=== PATIENT | female | born 1990 | race Caucasian/White ===

== ENCOUNTER 2024-04-20 04:37 | Inpatient (IN) | payer BC, OTHER ==
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
[2024-04-20 08:59] LABS: Amphetamine Screen,Urine Not Detected (NotDetected); Barbiturate Screen,Urine Not Detected (NotDetected); Benzodiazepines Screen,Urine Detected (NotDetected); Cocaine Screen,Urine Not Detected (NotDetected); Methadone Screen, Urine Not Detected (NotDetected); Opiate Screen,Urine Not Detected (NotDetected); Oxycodone Screen, Urine Not Detected (NotDetected); Phencyclidine Screen,Urine Not Detected (NotDetected); Tricyclic Antidepressant,Urine Not Detected (NotDetected); Urn Cannabinoid Scrn Detected (NotDetected)
[2024-04-20] MEDS: IBUPROFEN 600 MG TAB PO STA (12:50)
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
[2024-04-20] MEDS ORDERED: MAGNESIUM HYDROXIDE 2,400 MG/30 ML CUP PO PRN (14:59)
[2024-04-20] MEDS ORDERED: LORazepam 1 MG TAB PO PRN ×2 (14:59)
[2024-04-20] MEDS ORDERED: MAG HYDROX/AL HYDROX/SIMETH 355 ML BOTTLE PO PRN (14:59)
[2024-04-20] MEDS ORDERED: LORazepam 2 MG/ML INJ IM PRN (14:59)
[2024-04-20] MEDS ORDERED: ACETAMINOPHEN TAB 325 MG TAB PO PRN (14:59)
[2024-04-20] MEDS ORDERED: haloperidoL 5 MG TAB PO PRN (14:59)
[2024-04-20] MEDS ORDERED: IBUPROFEN 600 MG TAB PO PRN (14:59)
[2024-04-20] MEDS ORDERED: HALOPERIDOL LACTATE 5 MG/ML 1 ML VIAL IM PRN (14:59)
[2024-04-20 15:15] LABS: Appearance,Urine Clear (Clear); Bacteria,Urine Rare /hpf; Bilirubin,Urine Negative (Negative); Blood,Urine Small (Negative); Color,Urine Light Yellow; Glucose,Urine (UA) Negative (Negative); Ketones,Urine 1+ (Negative); Leukocyte Esterase,Urine Negative (Negative); Mucus,Urine Occasional /hpf; Nitrite,Urine Negative (Negative); PH, Urine 5.5 (5.0-8.0); Protein,Urine Negative (Negative); RBC,Urine 7 /hpf (0-5); Specific Gravity,Urine 1.019 (1.001-1.035); Squamous Epithelial Cell,Urine 2 /hpf (0-4); Urobilinogen,Urine <2.0 mg/dL (<2.0); WBC,Urine 1 /hpf (0-5)
[2024-04-20] MEDS: LORazepam 1 MG TAB PO PRN (23:28)
[2024-04-21] MEDS: NICOTINE 14MG/24HR PATCH TRANSDERM SCH (08:45)
[2024-04-21] MEDS: buPROPion XL 150 MG TAB.ER.24H PO SCH (08:45)
[2024-04-21] MEDS: THIAMINE 100 MG TAB PO SCH (08:45)
[2024-04-21] MEDS: FOLIC ACID 1 MG TAB PO SCH (08:45)
[2024-04-21] MEDS: FLUoxetine HCL 20 MG CAP PO SCH (08:45)
[2024-04-21] MEDS: lamoTRIgine 100 MG TAB PO SCH (08:45)
[2024-04-21] MEDS: MULTIVITAMINS, THERA 1 EACH TAB PO SCH (08:45)
[2024-04-21 09:01] LABS: Basophils % (A) 0 %; Eosinophils % (A) 1 %; HCT 42.3 % (34.0-46.0); HGB 14.1 gm/dL (11.4-16.0); Lymphocytes # (A) 1.2 k/uL (1.0-4.8); Lymphocytes % (A) 12 %; MCH 30.1 pg (25.0-35.0); MCHC 33.4 g/dL (31.0-37.0); MCV 90.2 fL (80.0-100.0); Mean Platelet Volume 8.1; Monocytes # (A) 0.3 k/uL (0-1.0); Monocytes % (A) 3 %; Neutrophils # (A) 7.8 k/uL (1.3-7.7); Neutrophils % (A) 82 %; Platelet Count 356 k/uL (150-450); RBC 4.69 m/uL (3.80-5.40); WBC 9.5 k/uL (3.8-10.6)
[2024-04-21 09:11] LABS: ALT 17 U/L (4-34); AST 25 U/L (14-36); African American GFR (CKD) >90 (>60 ml/min/1.73 sqM); Albumin 4.8 g/dL (3.5-5.0); Alkaline Phosphatase 107 U/L (38-126); Anion Gap 12 mmol/L; Blood Urea Nitrogen 8 mg/dL (7-17); Calcium 9.7 mg/dL (8.4-10.2); Carbon Dioxide 21 mmol/L (22-30); Chloride 103 mmol/L (98-107); Glucose 136 mg/dL (74-99); Non-African American GFR(CKD) >90 (>60 ml/min/1.73 sqM); Potassium 4.3 mmol/L (3.5-5.1); Sodium 136 mmol/L (137-145); Total Bilirubin 0.5 mg/dL (0.2-1.3); Total Protein 7.6 g/dL (6.3-8.2)
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
[2024-04-21] MEDS: lamoTRIgine 25 MG TAB PO ONE (12:45)
[2024-04-21 15:59] LABS: Chol/HDL Ratio 4.31 Ratio
--- NOTE | 2024-04-21 22:23 | P.MDCNMH ---
<Gumaro Montejo - Last Filed: 04/21/24 22:47> History of Present Illness H&P Date: 04/21/24 History of present illness; 33-year-old female presented to the hospital for homicidal thoughts. Takes no medications at home. Admits to smoking marijuana and alcohol use. Denies any other recreational drug use. Has no current medical complaints. REVIEW OF SYSTEMS: All systems reviewed, pertinent positives and negatives noted in HPI. All other symptoms are negative. PHYSICAL EXAMINATION: Vitals reviewed GENERAL: No acute distress. Well developed, well nourished. HEENT: No scleral icterus. Normocephalic, atraumatic. CARDIOVASCULAR: S1 and S2 present. No murmurs, rubs, or gallops. PULMONARY: Chest is clear to auscultation, no wheezing, rhonchi, or crackles. MUSCULOSKELETAL: No apparent joint swelling and deformities. EXTREMITIES: No apparent cyanosis, clubbing, or pedal edema. NEUROLOGICAL: The patient is alert and oriented x3, Gross neurological examination did not reveal any focal deficits. 5/5 strength bilateral UE and LE. CN2-12 intact without any gross abnormality. SKIN: No rash noted. Assessment and plan 33-year-old female presented to the hospital for homicidal thoughts. Internal medicine accepted this consult for medical management. Chronic Medical Conditions #Hyperlipidemia -Not currently on any medications nad no history of -Labs done showed: Triglyceride 113, cholesterol 226, LDL 151, VLDL 22.60, HDL 52.4 -Follow up outpatient #Possible alcohol use disorder -Continue with [facility] protocol # Depression/anxiety, conduct disorder, ODD/ADHD, bipolar/PTSD/BPD -Psychiatric medications as per the primary psychiatry team Code status: Full code Patient is stable from medical stand point Dictation was produced using [employer] dictation software. Please excuse any gramm atical, word or spelling errors. Past Medical History Past Medical History: No Reported History History of Any Multi-Drug Resistant Organisms: None Reported Past Surgical History: Section Past Anesthesia/Blood Transfusion Reactions: No Reported Reaction Past Psychological History: Anxiety, Depression Smoking Status: Never smoker Past Alcohol Use History: None Reported Past Drug Use History: None Reported Medications and Allergies Home Medications Medication Instructions Recorded Confirmed Type FLUoxetine HCL [PROzac] 40 mg PO DAILY 04/20/24 04/20/24 History buPROPion XL [Wellbutrin XL] 150 mg PO DAILY 04/20/24 04/20/24 History lamoTRIgine [LaMICtal] 150 mg PO DAILY 04/20/24 04/20/24 History Allergies Allergy/AdvReac Type Severity Reaction Status Date / Time No Known Allergies Allergy Verified 04/20/24 09:53 Physical Exam Vitals: Vital Signs Temp Pulse Resp BP Pulse Ox 04/21/24 06:26 98.1 F 106 H 16 145/84 98 Results CBC & Chem 7: 04/21/24 08:32 04/21/24 08:32 Labs: Abnormal Lab Results - Last 24 Hours (Table) 04/21/24 04/21/24 Range/Units 08:32 08:32 Neutrophils # 7.8 H (1.3-7.7) k/uL Sodium 136 L (137-145) mmol/L Carbon Dioxide 21 L (22-30) mmol/L Glucose 136 H (74-99) mg/dL Cholesterol 226.00 H (0.00-200.00) mg/dL LDL Cholesterol, Calc 151.0 H (0.0-131.0) mg/dL <Patricia Shaw - Last Filed: 04/21/24 23:53> History of Present Illness hyperlipidemia , recommending life style modification and weight loss. follow up LIpid panel in 3-6 months Physical Exam Vitals: Vital Signs Temp Pulse Resp BP Pulse Ox 04/21/24 06:26 98.1 F 106 H 16 145/84 98 Cranial Nerve Examination - Cranial Nerves Cranial Nerve II- Optic: Intact Cranial Nerve III- Oculomotor: Intact Cranial Nerve IV- Trochlear: Intact Cranial Nerve V- Trigeminal: Intact Cranial Nerve - Abducens: Intact Cranial Nerve VII- Facial: Intact Cranial Nerve VIII- Auditory: Intact Cranial Nerve IX- Glossopharyngeal: Intact Cranial Nerve X- Vagus: Intact Cranial Nerve XI- Accessory: Intact Cranial Nerve XII- Hypoglossal: Intact Results CBC & Chem 7: 04/21/24 08:32 04/21/24 08:32 Labs: Abnormal Lab Results - Last 24 Hours (Table) 04/21/24 04/21/24 Range/Units 08:32 08:32 Neutrophils # 7.8 H (1.3-7.7) k/uL Sodium 136 L (137-145) mmol/L Carbon Dioxide 21 L (22-30) mmol/L Glucose 136 H (74-99) mg/dL Cholesterol 226.00 H (0.00-200.00) mg/dL LDL Cholesterol, Calc 151.0 H (0.0-131.0) mg/dL Assessment and Plan Assessment: I have seen and evaluated the patient today. I Discussed the case with the resident and agree with the resident's findings I edited the assessment and plan as necessary as documented in the resident's note.
[2024-04-22 06:49] VITALS: TEMP 98.3
[2024-04-22] MEDS: lamoTRIgine 100 MG TAB PO SCH (08:23)
[2024-04-22] MEDS: FLUoxetine HCL 20 MG CAP PO SCH (08:24)
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
[2024-04-23] MEDS: BENZOCAINE/MENTHOL LOZENG 1 EACH LOZENGE MUCOUS MEM PRN (02:28)
[2024-04-23 06:36] VITALS: BP 116/84; PULSE 83; RESP 18
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
== END 2024-04-23 12:40 | disposition home or self-care (01) | DRG 885 ==
LOC: EC 04:37 → 3MHU 14:58
PROVIDERS: ADMIT Psychiatry & Neurology Psychiatry; ATTEND Psychiatry & Neurology Psychiatry
DX: F31.9 Bipolar disorder, unspecified (principal); R45.851 Suicidal ideations; E78.5 Hyperlipidemia, unspecified; F12.10 Cannabis abuse, uncomplicated; F10.20 Alcohol dependence, uncomplicated; F22 Delusional disorders; F41.1 Generalized anxiety disorder; F43.10 Post-traumatic stress disorder, unspecified; F60.89 Other specific personality disorders; S60.229A Contusion of unspecified hand, initial encounter; F90.9 Attention-deficit hyperactivity disorder, unspecified type; G47.10 Hypersomnia, unspecified; R45.850 Homicidal ideations; Z56.0 Unemployment, unspecified; Z79.899 Other long term (current) drug therapy; Z81.8 Family history of other mental and behavioral disorders; Z91.51 Personal history of suicidal behavior; X58.XXXA Exposure to other specified factors, initial encounter
CPT/HCPCS: 80053; 80061; 80306; 81001; 81025; 82075; 83036; 84443; 85025; 87636; 99285

== ENCOUNTER 2024-06-13 23:34 | Inpatient (IN) | payer BC, OTHER ==
--- NOTE | 2024-06-14 00:10 | ED ---
General Adult HPI - General Chief complaint: Psychiatric Symptoms Stated complaint: Petition Time Seen by Provider: 06/13/24 23:43 Source: police Mode of arrival: ambulatory Limitations: no limitations - History of Present Illness Initial comments: Dictation was produced using [employer] dictation software. please excuse any grammatical, word or spelling errors. Chief Complaint: 33-year-old female found wandering on the road History of Present Illness: Patient 33-year-old female presents to the emergency department via enforcement. She was found wandering the roads and a T-shirt increasing temperatures outside. Animal Nursery Worker's at the bedside states that patient was not cooperative or speaking. They do report that patient has history of mental disorder Unable to obtain ROS secondary to patient being uncooperative - Related Data Previous Rx's Medication Instructions Recorded FLUoxetine HCL [PROzac] 60 mg PO DAILY 30 Days #90 cap 04/23/24 Folic Acid 1 mg PO DAILY tab 04/23/24 Multivitamins, Thera [Multivitamin 1 each PO DAILY tab 04/23/24 (formulary)] Thiamine [Vitamin B-1] 100 mg PO DAILY tab 04/23/24 buPROPion XL [Wellbutrin XL] 150 mg PO DAILY 30 Days #30 tab 04/23/24 lamoTRIgine [LaMICtal] 200 mg PO DAILY 30 Days #60 tab 04/23/24 Allergies Allergy/AdvReac Type Severity Reaction Status Date / Time No Known Allergies Allergy Verified 06/14/24 00:03 Review of Systems ROS Statement: Those systems with pertinent positive or pertinent negative responses have been documented in the HPI. ROS Other: All systems not noted in ROS Statement are negative. Past Medical History Past Medical History: No Reported History History of Any Multi-Drug Resistant Organisms: None Reported Past Surgical History: No Surgical Hx Reported Past Anesthesia/Blood Transfusion Reactions: No Reported Reaction Past Psychological History: Anxiety, Depression Smoking Status: Current every day smoker Past Alcohol Use History: Occasional Past Drug Use History: None Reported General Exam - General Exam Comments Initial Comments: General: Well-appearing, nontoxic, no acute distress. Head: Normocephalic, atraumatic Eyes: PERRLA, EOMI ENT: Airway patent Chest: Nonlabored breathing Skin: No visual rash, normal skin tone Neuro: Alert and oriented 3 Musculoskeletal: No gross abnormalities Limitations: no limitations Course Vital Signs 06/13/24 06/13/24 23:38 23:54 Temperature 98.3 F 98 F Pulse Rate 80 79 Respiratory 18 18 Rate Blood Pressure 132/93 151/106 O2 Sat by Pulse 100 97 Oximetry Medical Decision Making - Medical Decision Making Was pt. sent in by a medical professional or institution (, PA, ELECTRONIC RESOURCES LIBRARIAN, urgent care, hospital, or senior living...) When possible be specific @ -No Did you speak to anyone other than the patient for history (EMS, parent, family, police, friend...)? What history was obtained from this source @ -Katherine as described above Did you review nursing and triage notes (agree or disagree)? Why? @ -I reviewed and agree with nursing and triage notes Were old charts reviewed (outside hosp., previous admission, EMS record, old EKG, old radiological studies, urgent care reports/EKG's, senior living records)? Report findings @ -No old charts were reviewed Differential Diagnosis (chest pain, altered mental status, abdominal pain women, abdominal pain men, vaginal bleeding, musculoskeletal, weakness, fever, dyspnea, syncope, headache, dizziness, GI bleed, back pain, seizure, CVA, palpatations, mental health)? @ -Differential Mental Health: Depression, anxiety, bipolar, psychosis, schizophrenia, borderline personality, situational depression, adjustment disorder, behavioral disorder, brain tumor, malingering, substance abuse, encephalopathy, medication reaction, dementia, hypothyroidism, degenerative neurologic disorder, lupus.... This is not meant to be all-inclusive list EKG interpreted by me (3pts min.). @ -None done X-rays interpreted by me (1pt min.). @ -None done CT interpreted by me (1pt min.). @ -None done U/S interpreted by me (1pt. min.). @ -None done What testing was considered but not performed or refused? (CT, X-rays, U/S, labs)? Why? @ -None What meds were considered but not given or refused? Why? @ -None Was smoking cessation discussed for >3mins.? @ -No Were there social determinants of health that impacted care today? How? (Homelessness, low income, unemployed, alcoholism, drug addiction, transportation, low edu. Level, literacy, decrease access to med. care, shelter, rehab)? @ -No Was there de-escalation of care discussed even if they declined (Discuss DNR or withdrawal of care, Hospice)? DNR status @ -No What co-morbidities impacted this encounter? (DM, HTN, Smoking, COPD, CAD, Cancer, CVA, ARF, Chemo, Hep., AIDS, mental health diagnosis, sleep apnea, morbid obesity)? @ -None Was patient admitted / discharged? Hospital course, mention meds given and route, prescriptions, significant lab abnormalities, going to OR and other pertinent info. @ -33-year-old female presents emergency department for psychiatric evaluation. She was found wandering outside and inclement weather just a T-shirt. Vital signs stable. Patient well-appearing. Patient unwilling to speak to myself or other staff. She is in no acute distress and is aware and alert. Patient medically cleared for EPS evaluation Did you discuss the management of the patient with other professionals (professionals i.e. , PA, ELECTRONIC RESOURCES LIBRARIAN, lab, RT, psych nurse, renal social worker, cistern room working supervisor, teacher, supervisory cbp officer, employment evaluator/case manager)? Give summary @ -Patient arrived by EPS recommends inpatient psychiatric admission. Clinical certification completed and placed in patient's chart Was critical care preformed (if so, how long)? @ -No Undiagnosed new problem with uncertain prognosis? @ -No Drug Therapy requiring intensive monitoring for toxicity (Heparin, Nitro, Insulin, Cardizem)? @ -No Were any procedures done? @ -No Diagnosis/symptom? Acute, or Chronic, or Acute on Chronic? Uncomplicated (without systemic symptoms) or Complicated (systemic symptoms)? @ -Acute psychosis Side effects of treatment? @ -No Exacerbation, Progression, or Severe Exacerbation? @ -No Poses a threat to life or bodily function? How? (Chest pain, [place], [place], pneumonia, PE, COPD, DKA, ARF, appy, cholecystitis, CVA, Diverticulitis, Homicidal, Suicidal, threat to staff... and all critical care pts) @ -yes Disposition Clinical Impression: Acute psychosis Disposition: ADMITTED IP TO THIS [facility] Condition: Fair Referrals: None,Stated [Primary Care Provider] - 1-2 days Time of Disposition: 00:46
[2024-06-14 02:10] LABS: Appearance,Urine Clear (Clear); Basophils # (A) 0.1 k/uL (0-0.2); Basophils % (A) 1 %; Bilirubin,Urine Negative (Negative); Blood,Urine Negative (Negative); Color,Urine Colorless; Eosinophils # (A) 0.2 k/uL (0-0.7); Eosinophils % (A) 1 %; Glucose,Urine (UA) Negative (Negative); HCT 39.1 % (34.0-46.0); HGB 12.8 gm/dL (11.4-16.0); Ketones,Urine Negative (Negative); Leukocyte Esterase,Urine Negative (Negative); Lymphocytes # (A) 1.5 k/uL (1.0-4.8); Lymphocytes % (A) 11 %; MCH 29.2 pg (25.0-35.0); MCHC 32.8 g/dL (31.0-37.0); MCV 88.9 fL (80.0-100.0); Mean Platelet Volume 7.1; Monocytes # (A) 0.6 k/uL (0-1.0); Monocytes % (A) 4 %; Neutrophils # (A) 11.4 k/uL (1.3-7.7); Neutrophils % (A) 82 %; Nitrite,Urine Negative (Negative); Platelet Count 418 k/uL (150-450); Protein,Urine Negative (Negative); RDW 12.8 % (11.5-15.5); Specific Gravity,Urine 1.009 (1.001-1.035); Urobilinogen,Urine <2.0 mg/dL (<2.0)
[2024-06-14 02:24] LABS: ALT 13 U/L (4-34); AST 19 U/L (14-36); African American GFR (CKD) >90 (>60 ml/min/1.73 sqM); Albumin 4.3 g/dL (3.5-5.0); Alkaline Phosphatase 139 U/L (38-126); Anion Gap 12 mmol/L; Blood Urea Nitrogen 7 mg/dL (7-17); Calcium 9.7 mg/dL (8.4-10.2); Carbon Dioxide 23 mmol/L (22-30); Chloride 102 mmol/L (98-107); Glucose 113 mg/dL (74-99); Non-African American GFR(CKD) >90 (>60 ml/min/1.73 sqM); Potassium 4.1 mmol/L (3.5-5.1); Sodium 137 mmol/L (137-145); Total Bilirubin 0.3 mg/dL (0.2-1.3); Total Protein 6.8 g/dL (6.3-8.2)
[2024-06-14 02:35] LABS: Amphetamine Screen,Urine Not Detected (NotDetected); Barbiturate Screen,Urine Not Detected (NotDetected); Benzodiazepines Screen,Urine Not Detected (NotDetected); Cocaine Screen,Urine Not Detected (NotDetected); Methadone Screen, Urine Not Detected (NotDetected); Opiate Screen,Urine Not Detected (NotDetected); Oxycodone Screen, Urine Not Detected (NotDetected); Phencyclidine Screen,Urine Not Detected (NotDetected); Tricyclic Antidepressant,Urine Not Detected (NotDetected); Urn Cannabinoid Scrn Detected (NotDetected)
[2024-06-14 10:38] VITALS: RESP 16
[2024-06-14] MEDS ORDERED: haloperidoL 5 MG TAB PO PRN (17:40)
[2024-06-14] MEDS ORDERED: MAG HYDROX/AL HYDROX/SIMETH 355 ML BOTTLE PO PRN (17:40)
[2024-06-14] MEDS ORDERED: ACETAMINOPHEN TAB 325 MG TAB PO PRN (17:40)
[2024-06-14] MEDS ORDERED: IBUPROFEN 600 MG TAB PO PRN (17:40)
[2024-06-14] MEDS ORDERED: LORazepam 1 MG TAB PO PRN ×3 (17:40→19:37)
[2024-06-14] MEDS ORDERED: MAGNESIUM HYDROXIDE 2,400 MG/30 ML CUP PO PRN (17:40)
[2024-06-15] MEDS ORDERED: BENZOCAINE/MENTHOL LOZENG 1 EACH LOZENGE MUCOUS MEM PRN (04:56)
[2024-06-15] MEDS: NICOTINE 14MG/24HR PATCH TRANSDERM SCH (09:09)
--- NOTE | 2024-06-15 13:29 | P.HP ---
Psychiatric H&P - . H&P Date: 06/15/24 History & Physical: Allergies Allergy/AdvReac Type Severity Reaction Status Date / Time No Known Allergies Allergy Verified 06/14/24 10:05 Vital Signs Temp 98.2 F 06/15/24 06:26 Pulse 106 H 06/15/24 09:10 Resp 16 06/15/24 06:26 BP 128/79 06/15/24 09:10 Pulse Ox 97 06/15/24 06:26 FiO2 Intake & Output 06/14/24 06/15/24 06/15/24 18:59 06:59 18:59 Weight 81.1 kg Laboratory Last Values WBC 14.0 k/uL (3.8-10.6) H 06/14/24 01:45 RBC 4.40 m/uL (3.80-5.40) 06/14/24 01:45 Hgb 12.8 gm/dL (11.4-16.0) 06/14/24 01:45 Hct 39.1 % (34.0-46.0) 06/14/24 01:45 MCV 88.9 fL (80.0-100.0) 06/14/24 01:45 MCH 29.2 pg (25.0-35.0) 06/14/24 01:45 MCHC 32.8 g/dL (31.0-37.0) 06/14/24 01:45 RDW 12.8 % (11.5-15.5) 06/14/24 01:45 Plt Count 418 k/uL (150-450) 06/14/24 01:45 MPV 7.1 06/14/24 01:45 Neutrophils % 82 % 06/14/24 01:45 Lymphocytes % 11 % 06/14/24 01:45 Monocytes % 4 % 06/14/24 01:45 Eosinophils % 1 % 06/14/24 01:45 Basophils % 1 % 06/14/24 01:45 Neutrophils # 11.4 k/uL (1.3-7.7) H 06/14/24 01:45 Lymphocytes # 1.5 k/uL (1.0-4.8) 06/14/24 01:45 Monocytes # 0.6 k/uL (0-1.0) 06/14/24 01:45 Eosinophils # 0.2 k/uL (0-0.7) 06/14/24 01:45 Basophils # 0.1 k/uL (0-0.2) 06/14/24 01:45 Sodium 137 mmol/L (137-145) 06/14/24 01:45 Potassium 4.1 mmol/L (3.5-5.1) 06/14/24 01:45 Chloride 102 mmol/L (98-107) 06/14/24 01:45 Carbon Dioxide 23 mmol/L (22-30) 06/14/24 01:45 Anion Gap 12 mmol/L 06/14/24 01:45 BUN 7 mg/dL (7-17) 06/14/24 01:45 Creatinine 0.56 mg/dL (0.52-1.04) 06/14/24 01:45 Est GFR (CKD-EPI)AfAm >90 (>60 ml/min/1.73 sqM) 06/14/24 01:45 Est GFR (CKD-EPI)NonAf >90 (>60 ml/min/1.73 sqM) 06/14/24 01:45 Glucose 113 mg/dL (74-99) H 06/14/24 01:[address] Glu mg/dL 108 mg/dL 06/15/24 07:33 Hemoglobin A1c 5.4 % (<=6.0) 06/15/24 07:33 Calcium 9.7 mg/dL (8.4-10.2) 06/14/24 01:45 Total Bilirubin 0.3 mg/dL (0.2-1.3) 06/14/24 01:45 AST 19 U/L (14-36) 06/14/24 01:45 ALT 13 U/L (4-34) 06/14/24 01:45 Alkaline Phosphatase 139 U/L (38-126) H 06/14/24 01:45 Total Protein 6.8 g/dL (6.3-8.2) 06/14/24 01:45 Albumin 4.3 g/dL (3.5-5.0) 06/14/24 01:45 TSH 1.330 mIU/L (0.465-4.680) 06/15/24 07:33 Urine Color Colorless 06/14/24 01:45 Urine Appearance Clear (Clear) 06/14/24 01:45 Urine pH 6.0 (5.0-8.0) 06/14/24 01:45 Ur Specific [place] 1.009 (1.001-1.035) 06/14/24 01:45 Urine Protein Negative (Negative) 06/14/24 01:45 Urine Glucose (UA) Negative (Negative) 06/14/24 01:45 Urine Ketones Negative (Negative) 06/14/24 01:45 Urine Blood Negative (Negative) 06/14/24 01:45 Urine Nitrite Negative (Negative) 06/14/24 01:45 Urine Bilirubin Negative (Negative) 06/14/24 01:45 Urine Urobilinogen <2.0 mg/dL (<2.0) 06/14/24 01:45 Ur Leukocyte Esterase Negative (Negative) 06/14/24 01:45 Urine HCG, Qual Not Detected (Not Detectd) 06/14/24 01:45 Urine Opiates Screen Not Detected (NotDetected) 06/14/24 01:45 Ur Oxycodone Screen Not Detected (NotDetected) 06/14/24 01:45 Urine Methadone Screen Not Detected (NotDetected) 06/14/24 01:45 Ur Barbiturates Screen Not Detected (NotDetected) 06/14/24 01:45 U Tricyclic Antidepress Not Detected (NotDetected) 06/14/24 01:45 Ur Phencyclidine Scrn Not Detected (NotDetected) 06/14/24 01:45 Ur Amphetamines Screen Not Detected (NotDetected) 06/14/24 01:45 U Methamphetamines Scrn Not Detected (NotDetected) 06/14/24 01:45 U Benzodiazepines Scrn Not Detected (NotDetected) 06/14/24 01:45 Urine Cocaine Screen Not Detected (NotDetected) 06/14/24 01:45 U Marijuana (THC) Screen Detected (NotDetected) H 06/14/24 01:45 SARS-CoV-2 (PCR) Not Detected (Not Detectd) 06/14/24 01:45 06/15/24 13:18 IDENTIFYING DATA: Patient is a 33-year-old female, unemployed and , living at home with father CHIEF COMPLAINT: Bizarre behavior HPI: Patient presented to the hospital with police enforcement after being found wandering outside with just a T-shirt on. EPS note revealed, "Patient was brought in by police who filled our a petition. Petition states "was walking down street at 10PM in 20*F in [facility]. Was also unable to speak with deputies and would only answer by nodding yes or no was walking directly in middle of road" "Has history of mental illness and father stated she needed to be in the hospital due to her mental illness". During assessment pt continued to remain mute but would answer questions by nodding head yes or no and by spelling words in the air with her finger. Zinc Etcher gained information from pt and from pt father. Patient prev IP here Apr 2024, pt nods that she has been taking her medications that she was discharged on but is unsure if she took her medications this morning. When offered to order her home meds for pt to take a dose, pt refused. Patient is going though a divorce and has been living with her father for the past few months. Patient has been diagnosed with bipolar most of her life. Patient has been going through a divorce and has partial custody of her 2 yr old son. Per pt father, pt was going to be able to see her son today but cancelled the visitation because she wasn't feeling good. Patient points to the ceiling when asked why she will not verbally talk, pt also refuses to write on a piece of paper but will spell out words by drawing them in the air which made the assessment slightly difficult. God is telling patient she cannot talk until 08/07/2024. Patient wants rehab, drinks anything she can get, last drink 06/12/24 she drank a bottle of wine. Patient denies seizures hx. Pt denies SI/HI,A/VH but appears to be religiously preoccupied and has delusional thought. Per pt and her father pt has hypersomnia sleeping 11-14 hrs, appears disheveled, decrease in appetite, poor impulse control, poor insight/ judgment." Patient seen and evaluated on the unit and was agreeable with speaking to press writer in office. Patient was disorganized, labile in affect. She states being found outside due to her being a goddess and that she has been communicating with God. She states she has been mute as God told her to spread the word via her behaviors not by speaking. Patient states being here due to her needing to go to rehab given alcohol and cannabis use however was unsure of the quantities of each. She states not being willing to take medications due to her wanting to get and display delusional thoughts regarding how she will become . Of note patient's screen was negative. She states she has been taking her medications including Lamictal, Prozac, Wellbutrin and states she has been seeing her outpatient psychiatrist for this. Patient was grandiose and religiously preoccupied throughout encounter telling press writer to read the Bible and that people who do not believe her will not be saved. Patient denies any suicidal or homicidal ideations intent or plan. At this time patient denies any auditory or visual hallucinations. Patient admits to using alcohol and cannabis. PAST PSYCHIATRIC HISTORY: Patient has a history of bipolar disorder. Patient reportedly has been taking Lamictal 200 mg daily, Wellbutrin XL 150 mg daily, Prozac 60 mg daily. She has tried Depakote, Zoloft, Trileptal, lithium, Risperdal in the past. Patient was most recently admitted to this facility 04/2024 and has had at least 10 inpatient hospitalizations. Follows with [facility]. Patient has had several suicide attempts in the past. PMH: as per ER note ALLERGIES: as per EMR SUBSTANCE USE HISTORY: As per HPI FAMILY PSYCHIATRIC/SUBSTANCE USE HISTORY: Patient states mom has depression SOCIAL HISTORY: Patient currently living with father and she has 1 child with h er ex- who has primary custody. She is unemployed. MENTAL STATUS EXAM: General Appearance: Patient appears to be stated age is alert, she requires frequent redirection. Patient appears to have poor hygiene and grooming. Behavior: Patient is seated without any agitated behavior. Speech: Patient's speech is talkative, loud volume at times Mood/Affect: Patient reports their mood is "okay", affect is congruent and labile. Suicidality/Homicidality: Patient denies having any homicidal ideation intent or plan. Denies any suicidal ideations intent or plan Perceptions: Patient denies any visual hallucinations and denies any auditory hallucinations Though content/process: There is evidence of methodist preoccupation, grandiose delusions with disorganized thoughts Memory and concentration: AOX3, grossly intact for the purposes of this session. Can spell "WORLD" backwards Judgment and insight: Poor STRENGTHS/WEAKNESSES: strength is that patient is resilient and has father support. Weakness is that patient has poor judgment and is impulsive INTELLECT: Average IMPRESSIONS: Bipolar 1 disorder, current episode manic Generalized anxiety disorder Cannabis use disorder Alcohol use disorder PLAN: -Patient is admitted under voluntary status to MHU for stabilization of psychiatric symptoms and safety. Patient has signed adult voluntary form and medication consent and is placed in patient's chart. Will have a low threshold for converting patient to involuntary if she refuses her medications tonight -Medications : Start Invega 3 mg at bedtime for psychosis, trazodone 50 mg at be dtime for sleep, restart Lamictal at 25 mg daily for mood stabilization -Ativan and Haldol PRN for agitation/aggression -Patient was counselled on substance abuse and desired to cut back on use -Patient was informed of the risks, benefits and side effects of the medication and patient verbally consented to taking the medications. Patient signed med consent form and was placed in chart. -Internal Medicine consult to perform medical evaluation and physical. -NRT -not needed as patient does not smoke -SW on board for discharge planning. Encourage patient to participate in groups to work on coping skills.
[2024-06-15 15:52] LABS: Chol/HDL Ratio 3.33 Ratio; LDL Cholesterol,Calculated 129.6 mg/dL (0.0-131.0)
[2024-06-15] MEDS: traZODone HCL 50 MG TAB PO SCH (21:50)
[2024-06-15] MEDS: PALIPERIDONE 3 MG TAB.ER.24 PO SCH (21:50)
--- NOTE | 2024-06-16 03:03 | P.MDCNMH ---
<Harriet Contreras - Last Filed: 06/16/24 03:13> History of Present Illness H&P Date: 06/16/24 Patient is a 33-year-old female with history of bipolar disorder and generalized anxiety disorder who presented to the ED brought in by law enforcement after she was found wandering around outside in just a T-shirt, was unwilling to speak to any staff and was admitted to the mental health unit for evaluation of acute psychosis. Sound physicians consulted for medical management. Patient endorses a cough. Patient denies any chest pain, shortness of breath, abdominal pain, nausea, vomiting, urinary or bowel complaints. WBCs 14, hemoglobin 12.8, creatinine 0.56, LDL 129.6, total cholesterol 220, urine toxicology positive for marijuana. Pertinent positives and negatives as discussed in HPI, a complete review of systems was performed and all other systems are negative. Patient seen and examined at bedside. Physical examination: Vital signs reviewed General: nontoxic, no distress, appears at stated age Derm: warm, dry, intact Head: atraumatic, normocephalic, symmetric Eyes: anicteric sclera Mouth: no lip lesion, mucus membranes moist Cardiovascular: S1 S2 reg, no murmur Lungs: CTA bilateral, no rhonchi, no rales, no accessory muscle use Abdominal: soft, non-tender to palpation, nondistended Extremities: No cyanosis, clubbing, or pedal edema. Neuro: Alert, Oriented to person, time and place, Gross neurological examination did not reveal any focal deficits. Cranial nerves II to XII grossly intact. Bilateral upper and lower extremity muscle strength intact and sensation intact. Psych: well appearing, appropriate affect Assessment/Plan: Bipolar 1 Generalized anxiety disorder Management per primary team psychiatry Cannabis use disorder Acute cough Robitussin 10 cc every 6 hours as needed CODE STATUS: Full code Patient has been medically optimized. Thank you for this consultation. Past Medical History Past Medical History: No Reported History History of Any Multi-Drug Resistant Organisms: None Reported Past Surgical History: No Surgical Hx Reported Past Anesthesia/Blood Transfusion Reactions: No Reported Reaction Past Psychological History: Anxiety, Bipolar, Depression Smoking Status: Current every day smoker, Vaper Past Alcohol Use History: Abuse, Daily, Heavy Past Drug Use History: Marijuana - Past Family History Father History Unknown: Yes Medications and Allergies Home Medications Medication Instructions Recorded Confirmed Type No Known Home Medications 06/14/24 06/14/24 History Allergies Allergy/AdvReac Type Severity Reaction Status Date / Time No Known Allergies Allergy Verified 06/14/24 10:05 Physical Exam Vitals: Vital Signs Temp Pulse Resp BP Pulse Ox 06/15/24 09:10 106 H 128/79 06/15/24 06:26 98.2 F 81 16 130/89 97 Results CBC & Chem 7: 06/14/24 01:45 06/14/24 01:45 Labs: Abnormal Lab Results - Last 24 Hours (Table) 06/15/24 Range/Units 07:33 Cholesterol 220.00 H (0.00-200.00) mg/dL HDL Cholesterol 66.00 H (40.00-60.00) mg/dL <Patricia Shaw M - Last Filed: 06/16/24 05:22> Physical Exam Vitals: Vital Signs Temp Pulse Resp BP Pulse Ox 06/15/24 09:10 106 H 128/79 06/15/24 06:26 98.2 F 81 16 130/89 97 Cranial Nerve Examination - Cranial Nerves Cranial Nerve II- Optic: Intact Cranial Nerve III- Oculomotor: Intact Cranial Nerve IV- Trochlear: Intact Cranial Nerve V- Trigeminal: Intact Cranial Nerve - Abducens: Intact Cranial Nerve VII- Facial: Intact Cranial Nerve VIII- Auditory: Intact Cranial Nerve IX- Glossopharyngeal: Intact Cranial Nerve X- Vagus: Intact Cranial Nerve XI- Accessory: Intact Cranial Nerve XII- Hypoglossal: Intact Results CBC & Chem 7: 06/14/24 01:45 06/14/24 01:45 Labs: Abnormal Lab Results - Last 24 Hours (Table) 06/15/24 Range/Units 07:33 Cholesterol 220.00 H (0.00-200.00) mg/dL HDL Cholesterol 66.00 H (40.00-60.00) mg/dL
[2024-06-16] MEDS: lamoTRIgine 25 MG TAB PO SCH (09:35)
[2024-06-16] MEDS ORDERED: guaiFENesin SYRUP 100MG/5ML 200 MG/10 ML CUP PO PRN (10:43)
[2024-06-16] MEDS: guaiFENesin-DM 100-10MG/5ML 10 ML CUP PO PRN (11:06)
--- NOTE | 2024-06-16 11:23 | P.PN ---
Progress Note - Text Progress Note Date: 06/16/24 Interval History: Patient was seen laying in bed and was directable and agreeable to speak with bond writer in the room. Patient refused all of her psychotropic medications, displaying poor insight and continues to express delusional thoughts. She states she cannot take medications as she will become soon and that she is waiting for her soulmate. Patient expresses how not factual this sounds however she was adamant that she will become and states that God was telling her this. She states not tending to her ADLs including brushing her teeth, combing her hair or showering and states that this is due to her feeling depressed however continue to decline medications to help with this. She states sleeping okay despite staff reporting 2 hours overnight. Patient was later seen walking the hallway stating "the end is near", expansive and affect. Mental Status Exam: General Appearance: Patient appears to be stated age is alert, directable, and cooperative. Patient hygiene and grooming are poor Behavior: Patient is calmly laying without any agitated behavior. Speech: Patient's speech is fluent and nonpressured, low volume and raspy tone. Mood/Affect: Mood is "okay", affect is congruent and expansive. Suicidality/Homicidality: Patient denies having any suicidal or homicidal ideation intent or plan. Perceptions: Patient denies any visual hallucinations however she reports auditory hallucinations described as hearing God speak to her Though content/process: There is evidence of both grandiose delusions and rastafarian preoccupation, disorganized thoughts Memory and concentration: AOX3, grossly intact for the purposes of this session Judgment and insight: poor Assessment Bipolar 1 disorder, current episode manic Generalized anxiety disorder Cannabis use disorder Alcohol use disorder Plan: -Patient continues to meet criteria for inpatient psychiatric admission for symptom stabilization and safety. Patient has not signed adult voluntary form and medication consent and was placed in patient's chart. Given patient's medication nonadherence, she will be converted involuntary. Petition completed today by RN with 2 CERT's to be completed as well. -Medications: Continue to offer Invega 3 mg at bedtime for psychosis, trazodone 50 mg at bedtime for sleep, Lamictal 25 mg daily for mood stabilization (note patient has been refusing these medications) -When necessary Ativan and Haldol for agitation/aggression. -Labs: Reviewed -NRT -not needed this patient does not smoke -SW on board for discharge planning. Encouraged the patient to participate in milieu. Currently awaiting deferral with curtain fitter and court date.
[2024-06-17] MEDS: LORazepam 2 MG/ML INJ IM PRN (09:34)
[2024-06-17] MEDS: HALOPERIDOL LACTATE 5 MG/ML 1 ML VIAL IM PRN (09:34)
--- NOTE | 2024-06-17 11:20 | P.PN ---
Progress Note - Text Progress Note Date: 06/17/24 Interval History: Patient was seen agitated in the halls, naked and refusing to put clothes on. Orthotic Technician attempted to talk to patient regarding what was going on however patient was exhibiting labile and bizarre behavior stating staff was infringing on her rights and that she was peacefully protesting. Patient was not redirectable and required as needed Ativan and Haldol which were effective. Of note patient has been refusing her psychotropic medications and was converted to involuntary yes terday given her refusal for treatment. Mental Status Exam: General Appearance: Patient appears to be stated age is alert and uncooperative. Behavior: Patient seen naked, yelling and agitated Speech: Patient's speech is fluent and pressured speech Mood/Affect: Mood is upset, affect is congruent and labile. Suicidality/Homicidality: Patient denies having any suicidal or homicidal ideation intent or plan. Perceptions: Patient denies any visual hallucinations and denies any auditory hallucinations Though content/process: There is evidence of hinduism preoccupation, bizarre behaviors exhibited Memory and concentration: AOX3, grossly intact for the purposes of this session Judgment and insight: poor Assessment Bipolar 1 disorder, current episode manic Generalized anxiety disorder Cannabis use disorder Alcohol use disorder Plan: -Patient continues to meet criteria for inpatient psychiatric admission for symptom stabilization and safety. Patient has not signed adult voluntary form an d medication consent and was placed in patient's chart. -Medications: Continue to offer Invega 3 mg at bedtime for psychosis, trazodone 50 mg at bedtime for sleep, Lamictal 25 mg daily for mood stabilization (note patient has been refusing these medications) -When necessary Ativan and Haldol for agitation/aggression. -Labs: Reviewed -SW on board for discharge planning. Encouraged the patient to participate in milieu. Currently awaiting deferral with securities attorney and court date.
--- NOTE | 2024-06-18 11:38 | P.PN ---
Progress Note - Text Progress Note Date: 06/18/24 Interval History: Patient was seen in her room and was notably irritable with specification writer, requesting to speak with specification writer in the [place]iff[place] as her room was her personal space. Patient was upset with requiring IM as needed medications yesterday for her behaviors, displaying poor insight into her behaviors yesterday stating she was peacefully protesting. She states not appreciating specification writer putting her hands to her yesterday despite specification writer not touching patient at all. She was reminded of court next week and patient stated she will request a jury trial. She continues to be nonadherent with psychotropic medications. Mental Status Exam: General Appearance: Patient appears to be stated age is alert, with poor hygiene, not cooperative. Behavior: Patient notably irritable, agitated Speech: Patient's speech is fluent and pressured Mood/Affect: Mood is upset, affect is congruent and labile. Suicidality/Homicidality: Patient denies having any suicidal or homicidal ideation intent or plan. Perceptions: Patient denies any visual hallucinations and denies any auditory hallucinations Though content/process: There is evidence of disorganization, delusional thoughts expressed Memory and concentration: AOX3, grossly intact for the purposes of this session Judgment and insight: Poor Assessment Bipolar 1 disorder, current episode manic Generalized anxiety disorder Cannabis use disorder Alcohol use disorder Plan: -Patient continues to meet criteria for inpatient psychiatric admission for symptom stabilization and safety. Patient has not signed adult voluntary form and medication consent and was placed in patient's chart. -Medications: Continue to offer Invega 3 mg at bedtime for psychosis, trazodone 50 mg at bedtime for sleep, Lamictal 25 mg daily for mood stabilization (note patient has been refusing these medications) -When necessary Ativan and Haldol for agitation/aggression. -Labs: Reviewed -SW on board for discharge planning. Encouraged the patient to participate in milieu. Court scheduled for next Friday
--- NOTE | 2024-06-19 15:57 | P.PN ---
Progress Note - Text Progress Note Date: 06/19/24 Dictation was produced using [employer] dictation software. Please excuse any grammatical, word or spelling errors. Interval history: Patient was seen in the hallway and was directable and agreeable to speak with the caption writer in the office for psychiatric follow-up. The pt states that she is feeling good today, reported that her mood is "good," reported that depression and anxiety are at the low side she rated both at 1 per 10. He denied any current suicidal, self-harm or homicidal thoughts or behavior he denied any auditory or visual hallucination. However she seemed to be minimizing her symptoms and display disorganized and bizarre thought and behavior. She has not been compliant with her medication and has been refusing all of her psychotropic medication. When we discussed medication today she reported " I am planning to be so I can take medication at all. " Education was provided and patient reported she is not considering any psychotropic medication at this time. Per nursing report: patient appears more aggressive with other patients and staff. caption writer asked patient if she would like something to assist her in calming down such as an oral prn medication. patient refused. Patient refused her vital signs, states "not today", also refused all of her medications this morning. Mental status exam: General Appearance: Patient appears to be stated age is alert, with poor hygiene, not cooperative. Behavior: Patient notably irritable, agitated Speech: Patient's speech is fluent and pressured Mood/Affect: Mood is "good", affect is congruent and labile. Suicidality/Homicidality: Patient denies having any suicidal or homicidal ideation intent or plan. Perceptions: Patient denies any visual hallucinations and denies any auditory hallucinations Though content/process: There is evidence of disorganization, delusional thoughts expressed, illogical and nonsensical process Memory and concentration: AOX3, grossly intact for the purposes of this session Judgment and insight: Poor Assessment Bipolar 1 disorder, current episode manic Generalized anxiety disorder Cannabis use disorder Alcohol use disorder Assessment/Plan: Continue with current diagnosis. Patient continues to meet criteria for inpatient psychiatric admission for symptom stabilization and safe ty .Patient will be maintained on current psychotropic medication regimen. Monitor for medication compliance and for any psychotropic medication side effects. Patient has been refusing all of her psychotropic medication, she was encouraged to start taking her meds however she continued to refuse. Will continue to monitor ongoing response to treatment. Encouraged participation in milieu.
--- NOTE | 2024-06-20 12:56 | P.PN ---
Progress Note - Text Progress Note Date: 06/20/24 Dictation was produced using [employer] dictation software. Please excuse any grammatical, word or spelling errors. Interval history: Patient was seen in the hallway and was directable and agreeable to speak with the expert medical writer in the office for psychiatric follow-up. The pt states that she is feeling well, denied any depression, anxiety, suicidal or homicidal thoughts or behavior. He denied any auditory or visual hallucination. Patient has disorganized thoughts and behavior, she was irritated and argumentative when we talked about medication. She reported that she does not consider any psychotropic medication and elaborates that has the right to refuse any treatment. No insight into her current mental illness, reported the reason for her not taking medication is to be . We will continue to offer medication. Mental status exam: General Appearance: Patient appears to be stated age is alert, with poor hygiene, not cooperative. Behavior: Patient notably irritable, agitated Speech: Patient's speech is fluent and pressured Mood/Affect: Mood is "good", affect is congruent and labile. Suicidality/Homicidality: Patient denies having any suicidal or homicidal ideation intent or plan. Perceptions: Patient denies any visual hallucinations and denies any auditory hallucinations Though content/process: There is evidence of disorganization, delusional thoughts expressed, illogical and nonsensical process Memory and concentration: AOX3, grossly intact for the purposes of this session Judgment and insight: Poor Assessment Bipolar 1 disorder, current episode manic Generalized anxiety disorder Cannabis use disorder Alcohol use disorder Assessment/Plan: Continue with current diagnosis. Patient continues to meet criteria for inpatient psychiatric admission for symptom stabilization and safety. Patient will be maintained on current psychotropic medication regimen. Monitor for medication compliance and for any psychotropic medication side effects. Patient has been refusing all of her psychotropic medication, she was encouraged to start taking her meds however she continued to refuse. Will continue to monitor ongoing response to treatment. Encouraged participation in milieu.
--- NOTE | 2024-06-20 21:27 | P.MHFACE ---
Face to Face Restrain/Seclus - Evaluation Patient's Immediate Situation: Endangers staff safety, Violent behavior Patient's Reaction to the Intervention: Appropriate, Cooperative, Angry, Suspicious Patient's Medical & Behavioral Condition: Awake, Alert, Follows directions, Paranoid Need to Continue or Terminate Restraint or Seclusion: Continue Face to Face Eval of Restraint Date: 06/20/24 Face to Face Eval of Restraint Time: 09:00
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
[2024-06-21] MEDS: risperiDONE 1 MG TAB PO SCH (21:58)
--- NOTE | 2024-06-22 12:44 | P.PN ---
Progress Note - Text Progress Note Date: 06/22/24 Interval History: Patient was seen laying in bed and was directable and agreeable to speak with policy writer in the room. She states still being upset with policy writer however reports good sleep and appetite. Patient was told the restrictions to the [place] will be uplifted today however will have a low threshold if patient continues to exhibit bizarre behaviors. Patient requested jury trial thus court tomorrow has been adjourned. This process was discussed with patient as this could take several months and patient was encouraged to identify some of her goals while here to which she states are to detox her medications. Patient was encouraged to consider medications and she states she will think about it. At this time patient denies any suicidal or homicidal ideations, intent or plan. Patient denies any auditory, visual hallucinations. Patient has been nonadherent with psychotropic medications. Mental Status Exam: General Appearance: Patient appears to be stated age is somnolent but cooperative. Behavior: Patient is calmly laying without any agitated behavior. Speech: Patient's speech is fluent and brief Mood/Affect: Mood is "tired", affect is congruent and constricted. Suicidality/Homicidality: Patient denies having any suicidal or homicidal ideation intent or plan. Perceptions: Patient denies any visual hallucinations and denies any auditory hallucinations Though content/process: There is no overt evidence of delusional thoughts however patient was brief in conversation today Memory and concentration: AOX3, grossly intact for the purposes of this session Judgment and insight: poor Assessment Bipolar 1 disorder, current episode manic Generalized anxiety disorder Cannabis use disorder Alcohol use disorder Plan: -Patient continues to meet criteria for inpatient psychiatric admission for symptom stabilization and safety. Patient has not signed adult voluntary form and medication consent and was placed in patient's chart. -Medications: Continue to offer Risperdal 1 mg at bedtime for bipolar disorder, Lamictal 25 mg daily for mood stabilization, trazodone 50 mg at bedtime for insomnia. Patient has been refusing all psychotropic medications. -When necessary Ativan and Haldol for agitation/aggression. -Labs: Reviewed -SW on board for discharge planning. Encouraged the patient to participate in milieu. Court scheduled for tomorrow has been adjourned as patient requested jury trial
--- NOTE | 2024-06-23 11:56 | P.PN ---
Progress Note - Text Progress Note Date: 06/23/24 Interval History: Patient was seen wandering the hallways and was directable and agreeable to sp harper with scientific technical writer in the office. Patient appeared to be minimizing symptoms however delusional thoughts were expressed. She states feeling well today however is still not agreeable with medications due to her detoxing because she is and wanting her baby to be pure from any drugs. Patient's negative test was discussed with patient to which she states she has plans on being . Attempted to have a discussion with patient's regarding medications that are more ideal for however patient declined. She states speaking to people in the outside world. Patient began laughing when told jury trial can take several months. At this time patient denies any suicidal or homicidal ideations, intent or plan. Patient denies any auditory, visual hallucinations. She continues to be nonadherent with medications. Mental Status Exam: General Appearance: Patient appears to be stated age is alert, directable, and more cooperative. Behavior: Patient is calmly seated without any agitated behavior. Withdrawn, minimizing Speech: Patient's speech is fluent, brief and nonpressured. Mood/Affect: Mood is "all right", affect is congruent and constricted. Suicidality/Homicidality: Patient denies having any suicidal or homicidal ideation intent or plan. Perceptions: Patient denies any visual hallucinations and denies any auditory hallucinations Though content/process: There is evidence of nonbizarre delusional thoughts Memory and concentration: AOX3, grossly intact for the purposes of this session Judgment and insight: poor Assessment Bipolar 1 disorder, current episode manic Generalized anxiety disorder Cannabis use disorder Alcohol use disorder Plan: -Patient continues to meet criteria for inpatient psychiatric admission for symptom stabilization and safety. Patient has not signed adult voluntary form and medication consent and was placed in patient's chart. -Medications: Continue to offer Risperdal 1 mg at bedtime for bipolar disorder, Lamictal 25 mg daily for mood stabilization, trazodone 50 mg as needed at bedtime for insomnia. Patient has been refusing all psychotropic medications -When necessary Ativan and Haldol for agitation/aggression. -Labs: Reviewed -SW on board for discharge planning. Encouraged the patient to participate in milieu. Court adjourned as patient requested jury trial
[2024-06-23] MEDS: traZODone HCL 50 MG TAB PO PRN (21:31)
--- NOTE | 2024-06-24 11:40 | P.PN ---
Progress Note - Text Progress Note Date: 06/24/24 Interval History: Patient was seen in room and was directable and agreeable to speak with insurance writer in the room. Patient did take Risperdal and trazodone overnight and is reporting fatigue this morning. Patient states that God told her to take the medicine and she questions when she can be discharged. She reports sleep difficulties despite fatigue this morning. Discussed with patient the plan to ideally transition to VALLADARES to which patient was agreeable however she later came to insurance writer and requests Geodon instead and was agreeable with starting this medication after obtaining an EKG. Psychoeducation was provided on this medication as it is more weight neutral and FDA approved for bipolar disorder. Patient inquired about follow-up and was told she will follow-up with [facility] outpatient. At this time patient denies any suicidal or homicidal ideations, intent or plan. Patient denies any visual hallucinations and denies any paranoia or delusions. Patient has been compliant with meds. Mental Status Exam: General Appearance: Patient appears to be stated age is alert, directable, and cooperative. She has poor hygiene Behavior: Patient is calmly seated without any agitated behavior. Speech: Patient's speech is fluent and nonpressured. Mood/Affect: Mood is improving mildly, affect is congruent and reactive. Suicidality/Homicidality: Patient denies having any suicidal or homicidal ideation intent or plan. Perceptions: Patient denies any visual hallucinations however reports auditory hallucinations described as God speaking to her Though content/process: There is no evidence of any delusional thought content and thought process is linear and goal-directed. Memory and concentration: AOX3, grossly intact for the purposes of this session Judgment and insight: Improving mildly Assessment Bipolar 1 disorder, current episode manic Generalized anxiety disorder Cannabis use disorder Alcohol use disorder Plan: -Patient continues to meet criteria for inpatient psychiatric admission for symptom stabilization and safety. Patient has not signed adult voluntary form and medication consent and was placed in patient's chart. -Medications: change Risperdal to Geodon 40 mg twice daily for bipolar disorder and continue Lamictal 25 mg daily for mood stabilization, trazodone 50 mg as needed at bedtime for insomnia -When necessary Ativan and Haldol for agitation/aggression. -Labs: Reviewed, EKG ordered to be completed today -SW on board for discharge planning. Encouraged the patient to participate in milieu. Court adjourned as patient requested jury trial and did not sign deferral
[2024-06-24 12:40] VITALS: BMI 37.3
[2024-06-24] MEDS: ZIPRASIDONE 40 MG CAP PO SCH (18:04)
[2024-06-25] MEDS: ZIPRASIDONE 40 MG CAP PO SCH (09:56)
--- NOTE | 2024-06-25 12:31 | P.PN ---
Progress Note - Text Progress Note Date: 06/25/24 Interval History: Patient was seen wandering the hallways and was directable and agreeable to sp harper with science writer in the office. Patient was compliant with her psychotropic medications, taking trazodone as needed for sleep which she finds effective. Patient did exhibit some disorganized thoughts, stating she feels as though she is not controlling them. She does report ideas of reference. She was goal oriented today and states she will be able to see her son on Friday which she was happy about. More reactive and affect. As patient requested jury trial, this was discussed at length as patient will be discharged before this will happen. At this time patient denies any suicidal or homicidal ideations, intent or plan. Patient denies any auditory, visual hallucinations. Patient denies any side effects from the medications and has been compliant with meds. Mental Status Exam: General Appearance: Patient appears to be stated age is alert, directable, and cooperative. Behavior: Patient is calmly seated without any agitated behavior. Speech: Patient's speech is fluent and less pressured Mood/Affect: Mood is improving mildly, affect is congruent and reactive. Suicidality/Homicidality: Patient denies having any suicidal or homicidal ideation intent or plan. Perceptions: Patient denies any visual hallucinations and denies any auditory hallucinations Though content/process: There is evidence of ideas of reference, disorganized station however less than previous encounters Memory and concentration: AOX3, grossly intact for the purposes of this session Judgment and insight: Improving mildly Assessment Bipolar 1 disorder, current episode manic generalized anxiety disorder Cannabis use disorder Alcohol use disorder Plan: -Patient continues to meet criteria for inpatient psychiatric admission for symptom stabilization and safety. Patient has not signed adult voluntary form and medication consent and was placed in patient's chart. -Medications: Increase Geodon to 80 mg twice daily for bipolar disorder, continue Lamictal 25 mg daily for mood stabilization, trazodone 50 mg as needed at bedtime for insomnia -When necessary Ativan and Haldol for agitation/aggression. -Labs: Reviewed, EKG showed normal sinus rhythm with sinus arrhythmia, QTc 449 -SW on board for discharge planning. Encouraged the patient to participate in milieu. Patient requested jury trial thus court has been adjourned. Anticipate discharge back home with father on Friday with [facility] follow-up.
[2024-06-25] MEDS: ZIPRASIDONE 80 MG CAP PO SCH (17:38)
[2024-06-26] MEDS: ZIPRASIDONE 80 MG CAP PO SCH (08:22)
--- NOTE | 2024-06-26 08:36 | P.PN ---
Subjective Progress Note Date: 06/26/24 Principal diagnosis: bipolar 1 manic in partial remission Patient was seen wandering the hallways and was directable and agreeable to speak with telegraphic typewriter operator chief in the office. Patient was compliant with her psychotropic medications, taking trazodone as needed for sleep which she finds effective. she says that she never has any trouble remembering her medicinesher good candidate for the Lamictal she is on. Patientsays she feels more in control of her thoughts. She does report ideas of reference. She was goal oriented today and states she will be able to see her son on Friday which she was happy about. affect appropriate. As patient requested jury trial, this was discussed at length as patient will be discharged before this will happen. At this time patient denies any suicidal or homicidal ideations, intent or plan. Patient denies any auditory, visual hallucinations. P atient denies any side effects from the medications and has been compliant with meds. Mental Status Exam: General Appearance: Patient appears to be stated age is alert, directable, and cooperative. Behavior: Patient is calmly seated without any agitated behavior. Speech: Patient's speech is fluent and less pressured Mood/Affect: Mood is improving mildly, affect is congruent and reactive. Suicidality/Homicidality: Patient denies having any suicidal or homicidal ideation intent or plan. Perceptions: Patient denies any visual hallucinations and denies any auditory hallucinations Though content/process: There is evidence of ideas of reference, disorganized station however less than previous encounters Memory and concentration: AOX3, grossly intact for the purposes of this session Judgment and insight: Improving mildly Assessmentpatient seen. Responding to the medicine she was able to sleep and racing thoughts and pressure seem to be slowing down Bipolar 1 disorder, current episode manic generalized anxiety disorder Cannabis use disorder Alcohol use disorder Plan: -Patient continues to meet criteria for inpatient psychiatric admission for symptom stabilization and safety. Patient has not signed adult voluntary form and medication consent and was placed in patient's chart. -Medications: Increase Geodon to 80 mg twice daily for bipolar disorder, continue Lamictal 25 mg daily for mood stabilization, trazodone 50 mg as needed at bedtime for insomnia -When necessary Ativan and Haldol for agitation/aggression. -Labs: Reviewed, EKG showed normal sinus rhythm with sinus arrhythmia, QTc 449 -SW on board for discharge planning. Encouraged the patient to participate in milieu. Patient requested jury trial thus court has been adjourned. Anticipate discharge back home with father on Friday with [facility] follow-up. I did a lot of educating on what Lamictal is why it's good and why takes so long to get it up to dose Objective - Vital Signs Vital signs: Vital Signs Temp 97.8 F 06/26/24 06:33 Pulse 104 H 06/26/24 06:33 Resp 16 06/26/24 06:33 BP 102/74 06/26/24 06:33 Pulse Ox 99 06/26/24 06:33 FiO2 - Labs CBC & Chem 7: 06/14/24 01:45 06/14/24 01:45
--- NOTE | 2024-06-27 09:12 | P.PN ---
Subjective Progress Note Date: 06/27/24 Principal diagnosis: bipolar 1 manic in partial remission Patient was agreeable to speak with race and sports book writer in the office. Patient was compliant with her psychotropic medications, taking trazodone as needed for sleep which she finds effective. she says that she never has any trouble remembering her medicines, which makes her good candidate for the Lamictal she is on. Patient says she feels more in control of her thoughts. She does report ideas of reference. She was goal oriented today. affect appropriate. As patient requested jury trial, this was discussed at length as patient will be discharged before this will happen. At this time patient denies any suicidal or homicidal ideations, intent or plan. Patient denies any auditory, visual hallucinations. Patient denies any side effects from the medications and has been compliant with meds. Mental Status Exam:Good eye contact cooperative normal gait good self care. General Appearance: Patient appears to be stated age is alert, directable, and cooperative. Behavior: Patient is calmly seated without any agitated behavior. Speech: Patient's speech is fluent and not pressured Mood/Affect: Mood is improving mildly, affect is congruent and reactive. Suicidality/Homicidality: Patient denies having any suicidal or homicidal ideation intent or plan. Perceptions: Patient denies any visual hallucinations and denies any auditory hallucinations Though content/process: There is evidence of ideas of reference, disorganized station however less than previous encounters Memory and concentration: AOX3, grossly intact for the purposes of this session Judgment and insight: Improving mildly Assessmentpatient seen. Responding to the medicine she was able to sleep and racing thoughts and pressure seem to be slowing down Bipolar 1 disorder, current episode manic generalized anxiety disorder Cannabis use disorder Alcohol use disorder Plan: -Patient continues to meet criteria for inpatient psychiatric admission for symptom stabilization and safety. Patient has not signed adult voluntary form and medication consent and was placed in patient's chart. -Medications: Increase Geodon to 80 mg twice daily for bipolar disorder, continue Lamictal 25 mg daily for mood stabilization, trazodone 50 mg as needed at bedtime for insomnia -When necessary Ativan and Haldol for agitation/aggression. -Labs: Reviewed, EKG showed normal sinus rhythm with sinus arrhythmia, QTc 449 -SW on board for discharge planning. Encouraged the patient to participate in milieu. Patient requested jury trial thus court has been adjourned. Anticipate discharge back home with father on Friday with [facility] follow-up. I did a lot of educating on what Lamictal is why it's good and why takes so long to get it up to dose Objective - Vital Signs Vital signs: Vital Signs Temp 97.8 F 06/26/24 06:33 Pulse 104 H 06/26/24 06:33 Resp 16 06/26/24 06:33 BP 102/74 06/26/24 06:33 Pulse Ox 99 06/26/24 06:33 FiO2 - Labs CBC & Chem 7: 06/14/24 01:45 06/14/24 01:45
[2024-06-27] MEDS: QUEtiapine 25 MG TAB PO PRN (21:48)
[2024-06-28 06:41] VITALS: BP 94/68; PULSE 118; TEMP 97.9
--- NOTE | 2024-06-28 13:52 | P.DS ---
Providers Date of admission: 06/14/24 17:39 Expected date of discharge: 06/28/24 Attending physician: Leonor Love MD Consults: 06/14/24 17:40 Consult Physician Routine Consulting Provider: Imer Wagoner Consult Reason/Comments: H&P and medical Do you want consulting provider notified?: Yes Primary care physician: Stated None - Discharge Diagnosis(es) (1) Bipolar I disorder, recurrent manic episode Status: Acute Priority: High (2) Alcohol use disorder Status: Chronic Priority: Low (3) Cannabis use disorder Status: Chronic Priority: Low (4) Generalized anxiety disorder Status: Chronic Priority: Low Hospital Course: Admission HPI: Admission note was completed by bond underwriter "Patient presented to the hospital with police enforcement after being found wandering outside with just a T-shirt on. EPS note revealed, "Patient was brought in by police who filled our a petition. Petition states "was walking down street at 10PM in 20*F in [facility]. Was also unable to speak with deputies and would only answer by nodding yes or no was walking directly in middle of road" "Has history of mental illness and father stated she needed to be in the hospital due to her mental illness". During assessment pt continued to remain mute but would answer questions by nodding head yes or no and by spelling words in the air with her finger. Business Management Specialist gained information from pt and from pt father. Patient prev IP here Apr 2024, pt nods that she has been taking her medications that she was discharged on but is unsure if she took her medications this morning. When offered to order her home meds for pt to take a dose, pt refused. Patient is going though a divorce and has been living with her father for the past few months. Patient has been diagnosed with bipolar most of her life. Patient has been going through a divorce and has partial custody of her 2 yr old son. Per pt father, pt was going to be able to see her son today but cancelled the visitation because she wasn't feeling good. Patient points to the ceiling when asked why she will not verbally talk, pt also refuses to write on a piece of paper but will spell out words by drawing them in the air which made the assessment slightly difficult. God is telling patient she cannot talk until 08/07/2024. Patient wants rehab, drinks anything she can get, last drink 06/12/24 she drank a bottle of wine. Patient denies seizures hx. Pt denies SI/HI,A/VH but appears to be religiously preoccupied and has delusional thought. Per pt and her father pt has hypersomnia sleeping 11-14 hrs, appears disheveled, decrease in appetite, poor impulse control, poor insight/ judgment." Patient seen and evaluated on the unit and was agreeable with speaking to bond underwriter in office. Patient was disorganized, labile in affect. She states being found outside due to her being a goddess and that she has been communicating with God. She states she has been mute as God told her to spread the word via her behaviors not by speaking. Patient states being here due to her needing to go to rehab given alcohol and cannabis use however was unsure of the quantities of each. She states not being willing to take medications due to her wanting to get and display delusional thoughts regarding how she will become . Of note patient's s creen was negative. She states she has been taking her medications including Lamictal, Prozac, Wellbutrin and states she has been seeing her outpatient psychiatrist for this. Patient was grandiose and religiously preoccupied throughout encounter telling bond underwriter to read the Bible and that people who do not believe her will not be saved. Patient denies any suicidal or homicidal ideations intent or plan. At this time patient denies any auditory or visual hallucinations. Patient admits to using alcohol and cannabis." Hospital course: Upon admission to the unit patient was admitted involuntarily on a petition and certificate and a second certificate was completed and faxed to the courts. Patient ended up requesting a jury trial and thus court was adjourned. Patient on discharge did state her willingness to accept treatment and will likely waive and stip. Patient initially displayed odd behaviors, requiring frequent redirections for antagonizing other patients, running around naked on the unit and requiring as needed medications for these behaviors. Patient ended up agreeing to being started on Geodon and ended up being compliant with this medication. Towards end of her hospitalization, patient was able to display linear and logical thoughts, asking several questions regarding her mental health diagnoses and was strongly encouraged to continue taking medications for these diagnoses. Patient was started on Geodon and this was increased to 80 mg twice daily for bipolar disorder, Lamictal 25 mg daily for mood stabilization, trazodone 50 mg as needed at bedtime for insomnia. EKG did not reveal any prolonged QTc. Patient spoke of her stressors and engaged in therapy both group and individual. Patient was also seen by medical team for history and physical exam. Throughout the course of the hospitalization patient gradually improved with regards to mood, anxiety, sleep and became more future oriented with improved insight and judgment. On the day of discharge patient denied any suicidal or homicidal ideations intent or plan denied any auditory or visual hallucinations. The patient denied any access to guns or weapons. Patient denied any paranoia and did not endorse any delusions. Patient does not have a significant history of substance abuse and was counseled on abstaining from all substances including alcohol and marijuana. [facility] Patient was also counseled on the medications and need for regular compliance and was encouraged to follow-up with their outpatient appointment for mental health and also for primary care. Prior to discharge a family meeting will be arranged by psychosocial rehabilitation counselor to answer any questions and ensure safety upon discharge incuding making sure that guns/weapons are either removed from the home or locked away. Patient to be discharged back home with her father with [facility] follow-up Mental status exam: General Appearance: Patient appears to be stated age is alert, pleasant, and cooperative. Patient is in no acute distress and has improved hygiene and grooming Behavior: Patient is calmly seated without any agitated behavior. Speech: Patient's speech is fluent and nonpressured. Mood/Affect: Patient reports their mood is "better", affect is congruent and euthymic. Suicidality/Homicidality: Patient denies having any suicidal or homicidal ideation intent or plan. Perceptions: Patient denies any auditory or visual hallucinations. Though content/process: There is no evidence of any delusional thought content and thought process is linear and goal-directed. More future oriented Memory and concentration: AOX3, grossly intact for the purposes of this session. Can spell "WORLD" backwards correctly. Judgment and insight: Significantly improved Impression: Bipolar 1 disorder, current episode manic Generalized anxiety disorder Cannabis use disorder Alcohol use disorder Plan: -Continue with discharge today as patient has improved and stabilized psychiatrically and is not currently an imminent threat to themself and/or others. -Continue medications: Geodon 80 mg twice daily, Lamictal 25 mg daily, trazodone 50 mg as needed at bedtime -Patient was counseled on the need for medication compliance and appropriate follow-up at mental health and also primary care for medical issues. Patient verbalized understanding and agreed. -Social work to help coordinate patients discharge today arrange for and conduct family meeting to ensure safety upon discharge and answer any questions/concerns. also to ensure safe home environment that guns/weapons are either removed from the home or locked away. Social work also to arrange for patients follow up appointments with [facility] for psychiatric care along with follow up with primary care provider. -Patient counseled on abstaining from recreational drugs and marijuana and alcohol. Was informed/educated on the adverse effects on their physical and mental health. Patient verbally agreed and understood. Patient was offered substance abuse treatment however declined at this time. -Patient was instructed to return to the hospital or seek immediate medical care if their psychiatric or medical symptoms do worsen or reoccur. Abnormal Labs 06/14/24 06/14/24 06/14/24 01:45 01:45 01:45 WBC 14.0 H Neutrophils # 11.4 H Glucose 113 H Alkaline Phosphatase 139 H Cholesterol HDL Cholesterol U Marijuana (THC) Screen Detected H 06/15/24 07:33 WBC Neutrophils # Glucose Alkaline Phosphatase Cholesterol 220.00 H HDL Cholesterol 66.00 H U Marijuana (THC) Screen Vital Signs Temp 97.9 F 06/28/24 06:40 Pulse 118 H 06/28/24 06:40 Resp 16 06/26/24 06:33 BP 94/68 06/28/24 06:40 Pulse Ox 98 06/28/24 06:40 FiO2 Intake & Output 06/27/24 06/28/24 06/28/24 18:59 06:59 18:59 Weight 86.6 kg Allergies Allergy/AdvReac Type Severity Reaction Status Date / Time No Known Allergies Allergy Verified 06/14/24 10:05 Patient Condition at Discharge: Stable Plan - Discharge Summary Discharge Rx Participant: No New Discharge Prescriptions: New Ziprasidone [Geodon] 80 mg PO 0800 30 Days #30 cap Ziprasidone [Geodon] 80 mg PO 1800 30 Days #30 cap traZODone HCL [Desyrel] 50 mg PO HS PRN 30 Days #30 tab PRN Reason: Insomnia lamoTRIgine [LaMICtal] 25 mg PO DAILY 30 Days #30 tab Discharge Medication List Ziprasidone [Geodon] 80 mg PO 0800 30 Days #30 cap 06/25/24 [Rx] Ziprasidone [Geodon] 80 mg PO 1800 30 Days #30 cap 06/25/24 [Rx] lamoTRIgine [LaMICtal] 25 mg PO DAILY 30 Days #30 tab 06/25/24 [Rx] traZODone HCL [Desyrel] 50 mg PO HS PRN 30 Days #30 tab 06/25/24 [Rx] Follow up Appointment(s)/Referral(s): [facility] [Outside] - 06/29/24 12:30 pm (Intake on @ 12:30 pm w/ [facility] at [facility] [REFERRING] - 1 Week Patient Instructions/Handouts: Bipolar Disorder (DC), Social Anxiety Disorder (ED), Abuse of Alcohol (ED), Cannabis Abuse (DC) Activity/Diet/Wound Care/Special Instructions: [facility] Discharge Info Avoid the use of street drugs and alcohol. Take all medications as prescribed. When you are in need of refills on your medications, please contact your outpatient medical provider and/or outpatient psychiatrist. Please go to your scheduled outpatient appointments for aftercare treatment. If symptoms return or become worse, call the crisis line at or and/or visit the nearest emergency room for assistance. National Suicide and Crisis L ifeline - call or text 248 Discharge Disposition: HOME SELF-CARE
== END 2024-06-28 12:24 | disposition home or self-care (01) | DRG 885 ==
LOC: EC 23:34 → 3MHU 06-14 17:39
PROVIDERS: ADMIT Psychiatry & Neurology Psychiatry; ATTEND Psychiatry & Neurology Psychiatry
DX: F31.2 Bipolar disorder, current episode manic severe with psychotic features (principal); F17.290 Nicotine dependence, other tobacco product, uncomplicated; F41.1 Generalized anxiety disorder; F17.200 Nicotine dependence, unspecified, uncomplicated; F12.10 Cannabis abuse, uncomplicated; T43.296A Underdosing of other antidepressants, initial encounter; T43.226A Underdosing of selective serotonin reuptake inhibitors, initial encounter; T42.6X6A Underdosing of other antiepileptic and sedative-hypnotic drugs, initial encounter; Z56.0 Unemployment, unspecified; G47.10 Hypersomnia, unspecified; F10.10 Alcohol abuse, uncomplicated; Z79.899 Other long term (current) drug therapy; Z63.5 Disruption of family by separation and divorce; Z91.51 Personal history of suicidal behavior; Z81.8 Family history of other mental and behavioral disorders
CPT/HCPCS: 36415; 80053; 80061; 80306; 81003; 81025; 82075; 83036; 84443; 85025; 87635; 93005; 99285